=== PATIENT | male | born 1975 | race Two or more races ===

== ENCOUNTER 2017-06-05 05:11 | Inpatient (IN) | payer OTHER ==
[~2017-06-05] VITALS: Ht 165.1 cm; Wt 73.0 kg
[2017-06-05 06:48] LABS: BASOPHIL % 0.3 % (0-2); PLATELET COUNT 241 x10^3mcL (130-400); RED CELL DISTRIBUTION WIDTH 13.1 % (11.5-14.5)
[2017-06-05 07:08] LABS: CALCIUM 9.2 mg/dL (8.5-10.1); CARBON DIOXIDE 31.2 mmol/L (21-32); CHLORIDE SERUM 102 mmol/L (98-107); GFR1 > 60 mL/min; GLUCOSE SERUM 101 mg/dL (74-106); SODIUM SERUM 138 mmol/L (136-145)
[2017-06-05 07:14] LABS: ALBUMIN 4.1 g/dL (3.4-5.0); ALKALINE PHOSPHATASE 70 U/L (46-116); ALT/SGPT 29 U/L (16-63); AST/SGOT 14 U/L (15-37); BILIRUBIN TOTAL 0.9 mg/dL (0.20-1.00); LIPASE 76 IU/L (73-393); TOTAL PROTEIN, SERUM 7.6 g/dL (6.4-8.2)
[2017-06-05 09:30] VITALS: BP 115/77
[2017-06-05 10:28] LABS: MAGNESIUM 2.1 mg/dL (1.8-2.4); PHOSPHOROUS 3.1 mg/dL (2.5-4.9)
[2017-06-05 18:50] LABS: microscopic required? YES; urine erythrocyte NEGATIVE (NEGATIVE)
[2017-06-05 18:59] VITALS: BP 105/64
[2017-06-05 21:52] VITALS: BP 96/52
[2017-06-06 06:02] VITALS: BP 103/61
[2017-06-06 06:24] LABS: CALCIUM 8.4 mg/dL (8.5-10.1); CARBON DIOXIDE 26.5 mmol/L (21-32); CHLORIDE SERUM 104 mmol/L (98-107); CREATININE SERUM 0.9 mg/dL (0.7-1.3); GFR1 > 60 mL/min; GLUCOSE SERUM 97 mg/dL (74-106); PHOSPHOROUS 3.4 mg/dL (2.5-4.9); POTASSIUM SERUM 3.9 mmol/L (3.5-5.1); SODIUM SERUM 139 mmol/L (136-145)
[2017-06-06 06:59] LABS: BASOPHIL % 0.1 % (0-2); PLATELET COUNT 232 x10^3mcL (130-400); RED CELL DISTRIBUTION WIDTH 13.2 % (11.5-14.5)
[2017-06-06 10:21] VITALS: BP 105/60
[2017-06-06 13:39] VITALS: BP 112/64; BP 122/69
[2017-06-06 17:17] VITALS: BP 103/63
[2017-06-06 20:58] VITALS: BP 109/65
[2017-06-07 05:34] VITALS: BP 105/70
[2017-06-07 06:37] LABS: CALCIUM 8.5 mg/dL (8.5-10.1); CARBON DIOXIDE 27.9 mmol/L (21-32); CHLORIDE SERUM 104 mmol/L (98-107); CREATININE SERUM 0.9 mg/dL (0.7-1.3); GFR1 > 60 mL/min; GLUCOSE SERUM 91 mg/dL (74-106); PHOSPHOROUS 2.9 mg/dL (2.5-4.9); SODIUM SERUM 139 mmol/L (136-145)
[2017-06-07 06:47] LABS: BASOPHIL % 0.5 % (0-2); PLATELET COUNT 252 x10^3mcL (130-400); RED CELL DISTRIBUTION WIDTH 13.6 % (11.5-14.5)
[2017-06-07] MEDS ORDERED: ACETAMINOPHEN-H1 TA1 PO (09:06)
[2017-06-07] MEDS ORDERED: COL100 PO (09:07)
[2017-06-07 09:13] VITALS: BP 113/56
[2017-06-07 09:18] VITALS: BP 113/56
== END 2017-06-07 11:09 | disposition home or self-care (01) | DRG 343 ==
LOC: ED 05:11 → DU 08:11
PROVIDERS: Emergency Medicine; Surgery; ADMIT Family Medicine
PROC: 0DTJ4ZZ Resection of Appendix, Percutaneous Endoscopic Approach (ICD-10-PCS; principal; 2017-06-05 10:00)
DX: K35.80 Unspecified acute appendicitis (principal); E78.5 Hyperlipidemia, unspecified
CPT/HCPCS: 94150; J0330; J1885; J2175; J2250; J2405; J2543; J2704; J2710; J3010; J3490; J7030; J7120

== ENCOUNTER 2017-08-22 16:09 | Emergency (ER) | payer OTHER, MEDICAID ==
[~2017-08-22 16:09] MED LIST: ACETAMINOPHEN-H1 TA1 PO; COL100 PO
[2017-08-22 16:52] LABS: CALCIUM 8.6 mg/dL (8.5-10.1); CARBON DIOXIDE 32.2 mmol/L (21-32); CHLORIDE SERUM 103 mmol/L (98-107); CREATININE SERUM 0.8 mg/dL (0.7-1.3); GFR1 > 60 mL/min; SODIUM SERUM 142 mmol/L (136-145)
[2017-08-22 16:55] LABS: BASOPHIL % 0.5 % (0-2); PLATELET COUNT 286 x10^3mcL (130-400); RED CELL DISTRIBUTION WIDTH 13.2 % (11.5-14.5)
[2017-08-22 16:56] LABS: ALBUMIN 4.2 g/dL (3.4-5.0); ALKALINE PHOSPHATASE 96 U/L (46-116); AMYLASE 52 U/L (25-115); BILIRUBIN TOTAL 0.4 mg/dL (0.20-1.00); LIPASE 99 IU/L (73-393)
[2017-08-22 17:14] LABS: GLUCOSE SERUM 110 mg/dL (74-106)
[2017-08-22 17:15] LABS: POTASSIUM SERUM 4.1 mmol/L (3.5-5.1)
[2017-08-22 17:33] LABS: AST/SGOT 37 U/L (15-37)
[2017-08-22 19:01] VITALS: BP 135/83
[2017-08-22 19:57] LABS: ALT/SGPT 31 U/L (16-63)
== END 2017-08-22 19:01 | disposition home or self-care (01) ==
LOC: ED 16:09
PROVIDERS: Emergency Medicine
DX: R10.31 Right lower quadrant pain (principal)
CPT/HCPCS: 36415; 83880; 87491; 87591